=== PATIENT | female | born 1990 | race Caucasian/White ===

== ENCOUNTER 2018-05-18 17:15 | Emergency (ER) | payer SELFPAY ==
[2018-05-18] MEDS ORDERED: cefTRIAXone 1 GM in SODIUM CHLORIDE 0.9% MINIBAG 100 ML IV STA (17:47)
[2018-05-18] MEDS ORDERED: SODIUM CHLORIDE 0.9% 1,000 ML IV ONE (17:47)
[2018-05-18] MEDS ORDERED: DEXAMETHASONE 10 MG/ML VIAL IVP STA (17:48)
--- NOTE | 2018-05-18 17:53 | ED Physician Documentation ---
PD HPI HEENT - Stated complaint Stated Complaint: FEVER, FACE PAIN - Chief complaint Chief Complaint: Fever - History obtained from History obtained from: Patient - History of Present Illness Timing - onset: How many years ago (1) Timing - duration: Days (3) Timing - details: Gradual onset, Still present, Waxing and waning Location: Sinuses Improves: Medication Associated symptoms: Fever, Congestion, Rhinorrhea, Facial swelling, Headache, Cough, Other (double vision and syncope) Similar symptoms before: Diagnosis (sinusitis) Recently seen: Not recently seen - Additional information Additional information: 27-year-old female reports that she has had a problem with sinus and sinus infections for some time and that over the past year she has had recurrent episodes of sinus congestion cough and syncope. She has been into see her primary care doctor and she is been told she has been dehydrated. She relates that she had a 7-day course of steroid at one point which did not resolve her symptoms. She reports symptoms of sinus congestion and pain, cough of yellow and green phlegm, fever, syncope and intermittent double vision. She reports a continuous headache. 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 Review of Systems Constitutional: reports: Fever, Chills, Myalgias, Fatigue, Sweats Eyes: reports: Other (double vision periodically) Ears: reports: Tinnitus/ringing Nose: reports: Rhinorrhea / runny nose, Congestion, Sinus pressure / pain Throat: reports: Sore throat Cardiac: denies: Chest pain / pressure, Palpitations Respiratory: reports: Cough. denies: Dyspnea GI: reports: Nausea, Vomiting. denies: Abdominal Pain, Constipation, Diarrhea : denies: Dysuria, Frequency Skin: denies: Rash Musculoskeletal: denies: Neck pain, Back pain, Extremity pain Neurologic: reports: Near syncope, Syncope, Headache. 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) - Present Medications Home Medications: Ambulatory Orders Medication Instructions Recorded Confirmed No Known Home Medications 05/18/18 05/18/18 - Allergies Allergies/Adverse Reactions: Allergies Allergy/AdvReac Type Severity Reaction Status Date / Time No Known Drug Allergies Allergy Verified 05/18/18 17:21 - Social History Does the pt smoke?: Yes Smoking Status: Current every day smoker Does the pt drink ETOH?: Yes Does the pt have substance abuse?: No Substance Use and Type: Marijuana - Immunizations Immunizations are current?: No - POLST Patient has POLST: No PD ED PE NORMAL - Vitals Vital signs reviewed: Yes - General General: Alert and oriented X 3, Well developed/nourished, Other (teary eyed and AOB) - HEENT HEENT: Atraumatic, PERRL, EOMI, Other (right TM is obscurred by cerumen and the left is clear. The pharynx is mildly inflamed. There is point tenderness to the frontal sinuses and pressure but no tenderness to the maxillary sinuses. ) - Neck Neck: Supple, no meningeal sign, No bony TTP - Cardiac Cardiac: No murmur, Other (tachy to 120) - Respiratory Respiratory: No respiratory distress, Clear bilaterally - Abdomen Abdomen: Soft, Non tender - Back Back: No CVA TTP, No spinal TTP - Derm Derm: Normal color, Warm and dry, No rash - Extremities Extremities: No deformity, No edema - Neuro Neuro: Alert and oriented X 3, hotel server 2-12 intact, No motor deficit, No sensory deficit, Normal speech Eye Opening: Spontaneous Motor: Obeys Commands Verbal: Oriented GCS Score: 15 - Psych Psych: Normal mood, Normal affect Results - Vitals Vitals: Vital Signs - 24 hr 05/18/18 17:19 Temperature 38.8 C H Heart Rate 130 H Respiratory 18 Rate Blood Pressure 128/89 H O2 Saturation 98 Procedures - IVC sono (time) 1745 Bedside IVC sono: IVC measures (cm) (1.02), Dehydration (est 1 liter deficit) PD MEDICAL DECISION MAKING - ED course Complexity details: considered differential, d/w patient ED course: 27-year-old female with signs and symptoms of bacterial sinusitis appears dehydrated on interrogation of her inferior vena cava and she has had issue with both double vision and syncope. I felt her sinus symptoms were significant enough to warrant CT scanning of her sinuses and I have initiated treatment with saline for the dehydration Rocephin intravenously for the infection and dexamethasone for the inflammation. At shift change her care is turned over to Dr. Ortega.
[2018-05-18 18:00] LABS: BILIRUBIN,URINE NEGATIVE (NEGATIVE); GLUCOSE, URINE (UA) NEGATIVE (NEGATIVE); KETONES,URINE (UA) 40 mg/dL (NEGATIVE); LEUKOCYTE ESTERASE, URINE NEGATIVE (NEGATIVE); NITRITE,URINE NEGATIVE (NEGATIVE); OCCULT BLOOD,URINE NEGATIVE (NEGATIVE); PROTEIN,URINE NEGATIVE (NEGATIVE); UROBILINOGEN,URINE 0.2 (NORMAL) E.U./dL (NORMAL)
[2018-05-18 18:03] LABS: CLARITY,URINE CLEAR (CLEAR)
[2018-05-18 18:04] LABS: HCG UR QUAL NEGATIVE
[2018-05-18 18:29] LABS: BASOPHILS % (AUTO) 0.2 %; EOSINOPHILS % (AUTO) 0.1 %; HGB - HEMOGLOBIN 15.1 g/dL (12.0-16.0); LYMPHOCYTES # (AUTO) 0.5 10^3/uL (1.5-3.5); MEAN CORPUSCULAR HEMOGLOBIN 31.8 pg (27.0-31.0); MEAN CORPUSCULAR VOLUME 93.5 fL (81.0-99.0); MEAN PLATELET VOLUME 7.3 fL (7.9-10.8); MONOCYTES # (AUTO) 0.7 10^3/uL (0.0-1.0); MONOCYTES % (AUTO) 13.5 %; NEUTROPHILS # (AUTO) 4.1 10^3/uL (1.5-6.6); NEUTROPHILS % (AUTO) 77.2 %; PLT - PLATELET COUNT 180 10^3/uL (130-450); RED BLOOD COUNT 4.75 10^6/uL (4.20-5.40); RED CELL DISTRIBUTION WIDTH 12.3 % (12.0-15.0); WHITE BLOOD COUNT 5.3 x10^3/uL (4.8-10.8)
[2018-05-18 18:35] VITALS: BP 124/80
[2018-05-18 18:39] LABS: ALBUMIN 4.3 g/dL (3.2-5.5); ALBUMIN/GLOBULIN RATIO 1.3 (1.0-2.2); BILIRUBIN,TOTAL 0.5 mg/dL (0.2-1.0); CALCIUM 9.2 mg/dL (8.5-10.3); CREATININE 0.7 mg/dL (0.4-1.0); TOTAL PROTEIN 7.7 g/dL (6.7-8.2)
--- NOTE | 2018-05-18 19:18 | CT Report ---
Reason: sinus pain, headache double vision syncope Procedure Date: 05/18/2018 Accession Number: [id number] / [id number] Procedure: CT - Sinuses CPT Code: FULL RESULT: EXAM: CT SINUS EXAM DATE: 05/18/2018 06:50 PM. HISTORY: 27-year-old presenting with headache, sinus pain, and double vision. Evaluate for intracranial pathology. COMPARISONS: None. TECHNIQUE: Routine multi-axial CT imaging performed through the sinuses. Iodinated IV contrast: None. Reconstructions: Multiplanar reformats. In accordance with CT protocol optimization, one or more of the following dose reduction techniques were utilized for this exam: automated exposure control, adjustment of mA and/or KV based on patient size, or use of iterative reconstructive technique. FINDINGS: RIGHT Frontal: Normal. Ethmoid: Normal. Maxillary: Normal. Sphenoid: Normal. Drainage Pathways: The frontal recess, ostiomeatal complex and sphenoethmoidal recess are patent and normal. LEFT Frontal: Normal. Ethmoid: Normal. Maxillary: Normal. Sphenoid: Normal. Drainage Pathways: The frontal recess, ostiomeatal complex and sphenoethmoidal recess are patent and normal. Nasal Cavity: Slight deviation of the bony nasal septum to the right. There is rightward projecting bony nasal spur. Osseous Structures: Unremarkable. Orbits: Unremarkable. Other: None. IMPRESSION: 1. The visualized paranasal sinuses appear clear. 2. Visualized paranasal sinus drainage pathways appear patent. [facility]
[2018-05-18] MEDS ORDERED: MORPHINE 10 MG/ML VIAL IVP STA (20:34)
[2018-05-18] MEDS ORDERED: KETOROLAC 30 MG/ML VIAL IVP STA (20:34)
[2018-05-18] MEDS ORDERED: oxyCODONE/ACET 5/325 Prepack 4 PO STA (20:43)
--- NOTE | 2018-05-18 20:44 | ED Physician Documentation ---
ED Addendum - Addendum Addendum: 05/18/18 20:43 Having URI type symptoms and fevers. Has had sinus pains recently. CT sinuses normal. Flu test positive.
== END 2018-05-18 21:09 | disposition home or self-care (01) ==
LOC: ED 17:15
DX: J11.1 Influenza due to unidentified influenza virus with other respiratory manifestations (principal); J32.9 Chronic sinusitis, unspecified; B96.89 Other specified bacterial agents as the cause of diseases classified elsewhere; E86.0 Dehydration; R55 Syncope and collapse; H53.2 Diplopia; F17.200 Nicotine dependence, unspecified, uncomplicated
CPT/HCPCS: 36415; 70486; 80053; 80320; 81001; 81003; 81025; 83690; 85025; 87086; 87275; 87276; 96365; 96375; 99283

== ENCOUNTER 2019-03-11 23:43 | Outpatient (CLI) | payer MEDICAID | END 2019-03-11 23:59 | disposition critical access hospital (66) | LOC: EMS 23:43 | PROVIDERS: ATTEND Surgery | DX: S91.121A Laceration with foreign body of right great toe without damage to nail, initial encounter (principal); W25.XXXA Contact with sharp glass, initial encounter; W20.8XXA Other cause of strike by thrown, projected or falling object, initial encounter; Y92.000 Kitchen of unspecified non-institutional (private) residence as the place of occurrence of the external cause; R42 Dizziness and giddiness | CPT/HCPCS: A0425; A0429 ==

== ENCOUNTER 2019-03-11 23:58 | Emergency (ER) | payer MEDICAID ==
--- NOTE | 2019-03-12 00:06 | ED Physician Documentation ---
History of Present Illness - Stated complaint Stated Complaint: TOE LAC - Additonal information Additional information: This is a 28-year-old female presents with a laceration to her left great toe. Patient states that she drank around 5 glasses of wine tonight, and she was spen ding time with her son, her son reached up to grab a bowl with some snacks in it and it fell on the ground impacting her toe and shattering. A piece of glass cut her toe. She ran the toe under water for 20 minutes and it continued to have some bleeding. She did not try any direct pressure on the bleeding. She called a friend who apparently is in the healthcare field, and the friend called for an ambulance to bring her to the emergency department. She is complaining of pain in her left foot, mostly over the great toe. 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) - Present Medications Home Medications: Ambulatory Orders Medication Instructions Recorded Confirmed Cetirizine [ZyrTEC] 10 mg PO DAILY #15 tablet 05/18/18 Hydrocodone/Acetaminophen [[place] 1 each PO Q6H PRN #15 tablet 05/18/18 5-325 Tablet] Naproxen 375 mg PO BID #20 tablet 05/18/18 dexAMETHasone [Decadron] 4 mg PO DAILY #5 tablet 05/18/18 - Allergies Allergies/Adverse Reactions: Allergies Allergy/AdvReac Type Severity Reaction Status Date / Time No Known Drug Allergies Allergy Verified 05/18/18 17:21 - Social History Does the pt smoke?: Yes Smoking Status: Current every day smoker Does the pt drink ETOH?: Yes Does the pt have substance abuse?: No - Immunizations Immunizations are current?: No - POLST Patient has POLST: No PD ED PE NORMAL - General General: No acute distress - HEENT HEENT: Atraumatic - Cardiac Cardiac: RRR - Respiratory Respiratory: No respiratory distress - Abdomen Abdomen: Non distended - Extremities Extremities: Other (There is a 1 cm laceration over the left great toe which is hemostatic. There is tenderness of the toe, as well as over the distal first metacarpal. No gross deformity. Capillary refill is brisk, sensation intact light touch, patient is able to wiggle all of her toes.) - Neuro Neuro: Alert and oriented X 3, No motor deficit, No sensory deficit Results - Vitals Vitals: Vital Signs - 24 hr 03/12/19 00:07 Temperature 36.5 C Heart Rate 102 H Respiratory 18 Rate Blood Pressure 129/95 H O2 Saturation 98 Oxygen O2 Source Room air PD MEDICAL DECISION MAKING - ED course Complexity details: considered differential (Fracture, laceration, contusion) ED course: On arrival patient is well-appearing, her wound is hemostatic, she does have some tenderness of the great toe and the first metacarpal. I recommended an x- ray, patient initially refused this, stating that she did not want to pay for an x-ray, explained my concern for potential fracture given her point tenderness, and patient agreed to the x-ray. I also recommended a Tdap, She does not know when her last tetanus booster was, and this was ordered. I was alerted by the x- ray mineral surveying technician that patient had refused the x-ray of her foot. I walked to her room to discuss this with her, but patient had already eloped. She did not explain why she was eloping. We had agreed on a plan to perform the x-ray, and then suture the laceration of her foot, and patient clearly had understanding of this prior to eloping. She has been drinking in the night, but she was holding a normal conversation with me, and certainly had capacity and understanding of the plan of care. Departure - Departure Disposition: ED Elope Clinical Impression: Laceration, Toe pain, left Discharge Date/Time: 03/12/19 00:57
[2019-03-12 00:09] VITALS: BP 129/95
[2019-03-12] MEDS ORDERED: TETANUS/DIPHTHERIA/PERTUSSIS 0.5 ML SYRINGE IM ONE (00:16)
== END 2019-03-12 00:57 | disposition left against medical advice (07) ==
LOC: EDUNIT# → ED 23:58
DX: S91.112A Laceration without foreign body of left great toe without damage to nail, initial encounter (principal); W25.XXXA Contact with sharp glass, initial encounter; F17.200 Nicotine dependence, unspecified, uncomplicated
CPT/HCPCS: 90471; 99282

== ENCOUNTER 2019-03-12 12:26 | Emergency (ER) | payer MEDICAID ==
[2019-03-12 12:36] VITALS: BP 114/89
--- NOTE | 2019-03-12 12:47 | ED Physician Documentation ---
PD HPI LOWER EXT INJURY - Stated complaint Stated Complaint: R FOOT INJ - Chief complaint Chief Complaint: Laceration - History obtained from History obtained from: Patient - History of Present Illness PD HPI LOW EXT INJURY LOCATION: Right (She dropped a bowl on her right foot last night and sustained a laceration. This was a little over 12 hours ago. She was seen here last night and the plan was to x-ray it and suture it. She eloped without an x-ray, tetanus shot, or wound care. She returns for reevaluation.) Review of Systems Constitutional: reports: Reviewed and negative Cardiac: reports: Reviewed and negative Respiratory: reports: Reviewed and negative PD PAST MEDICAL HISTORY - Past Surgical History Past Surgical History: Yes /[facility]: Dilation and currettage, LEEP (Cervical surgery) - Present Medications Home Medications: Ambulatory Orders Medication Instructions Recorded Confirmed Cetirizine [ZyrTEC] 10 mg PO DAILY #15 tablet 05/18/18 Hydrocodone/Acetaminophen [[place] 1 each PO Q6H PRN #15 tablet 05/18/18 5-325 Tablet] Naproxen 375 mg PO BID #20 tablet 05/18/18 dexAMETHasone [Decadron] 4 mg PO DAILY #5 tablet 05/18/18 - Allergies Allergies/Adverse Reactions: Allergies Allergy/AdvReac Type Severity Reaction Status Date / Time No Known Drug Allergies Allergy Verified 03/12/19 12:35 - Social History Does the pt smoke?: Yes Smoking Status: Current every day smoker Does the pt drink ETOH?: Yes Does the pt have substance abuse?: No - Immunizations Immunizations are current?: No - POLST Patient has POLST: No PD ED PE NORMAL - Vitals Vital signs reviewed: Yes - General General: Alert and oriented X 3, No acute distress - Extremities Extremities: Other (There is a slightly less than 1 cm laceration on the dorsum of the great toe at the level of the interphalangeal joint. There is no deformity or distal neurovascular compromise but she is quite tender. No obvious foreign body.) - Neuro Neuro: Alert and oriented X 3, Normal speech Results - Vitals Vitals: Vital Signs - 24 hr 03/12/19 12:29 Temperature 36.9 C Heart Rate 101 H Respiratory 16 Rate Blood Pressure 114/89 H O2 Saturation 100 Oxygen O2 Source Room air - Rads (name of study) R big toe Radiology: EMP read contemporaneously (Possible sesamoid fracture) PD MEDICAL DECISION MAKING - ED course ED course: Probably a little late to suture it now, it is a pretty small wound. She still needs the x-ray and a tetanus shot. Of note I tried to order the tetanus shot in the EMR, but had to call the pharmacy as it was listed as a duplicate order. It does appear she did not get a tetanus shot last night and is needing 1. The wound was irrigated and dressed, x-ray reviewed, the location of the wound is not near the sesamoid. She is tender over the sesamoid though so she was placed in a fracture shoe. Departure - Departure Disposition: Home, Self Care Clinical Impression: Laceration, Fracture of sesamoid bone Condition: Good Record reviewed to determine appropriate education?: Yes Instructions: ED Laceration Small Superf No Sutr Follow-Up: [facility] [Provider Group] Comments: You can wash the wound briefly with soap and water, otherwise just keep it covered with a Band-Aid and wear the shoe as needed when up and and take ibuprofen for pain. Follow-up with the orthopedic office in a week or so. Call for an appointment. Forms: Activity restrictions
[2019-03-12] MEDS ORDERED: TETANUS/DIPHTHERIA/PERTUSSIS 0.5 ML SYRINGE IM ONE (13:00)
--- NOTE | 2019-03-12 13:14 | XRAY Report ---
Reason: toe inj Procedure Date: 03/12/2019 Accession Number: [id number] / [id number] Procedure: XR - Toe(s) RT CPT Code: Final Report FULL RESULT: EXAM: RIGHT TOE RADIOGRAPHY EXAM DATE: 03/12/2019 01:02 PM. CLINICAL HISTORY: Toe injury. COMPARISON: None. TECHNIQUE: 3 views. FINDINGS: Bones: Bipartite sesamoid versus sesamoid fracture on the plantar surface of the distal tuft of the first metatarsal. Given irregular appearance of the sesamoid fragment, favor fracture. Joints: Normal. No subluxations. Soft Tissues: Normal. No soft tissue swelling. IMPRESSION: Sesamoid fracture. RADIA
== END 2019-03-12 13:53 | disposition home or self-care (01) ==
LOC: ED 12:26
DX: S92.311A Displaced fracture of first metatarsal bone, right foot, initial encounter for closed fracture (principal); W20.8XXA Other cause of strike by thrown, projected or falling object, initial encounter; S91.112A Laceration without foreign body of left great toe without damage to nail, initial encounter; W25.XXXA Contact with sharp glass, initial encounter; F17.200 Nicotine dependence, unspecified, uncomplicated; Z23 Encounter for immunization
CPT/HCPCS: 73660; 90471; 99282; 99283

== ENCOUNTER 2019-06-25 17:13 | Outpatient (CLI) | payer SELFPAY | END 2019-06-25 17:14 | disposition home or self-care (01) | LOC: COV 17:13 | PROVIDERS: ATTEND Family Medicine | DX: R05 Cough (principal); Z20.828 Contact with and (suspected) exposure to other viral communicable diseases ==